=== PATIENT | female | born 2000 | race African-American/Black ===

== ENCOUNTER 2020-09-28 20:14 | Emergency (ER) | payer OTHER ==
[~2020-09-28] VITALS: Ht 165.1 cm; Wt 73.5 kg
[2020-09-28 21:15] LABS: HEMATOCRIT 38.3 % (37.0-47.0); HEMOGLOBIN 12.5 gm/dL (12.0-15.0); MCH 27.9 pg (26.0-34.0); MCHC 32.7 g/dL (28.0-37.0); MCV 85.1 fL (80.0-100.0); PLATELET COUNT 262 thou/uL (150-400); RDW 14.1 % (10.5-14.5); WBC 4.1 thou/uL (4.0-11.0)
[2020-09-28 21:21] LABS: ANION GAP 7 mmol/L (7-16); BUN 13 mg/dL (7-18); CALCIUM 9.1 mg/dL (8.5-10.1); CHLORIDE 106 mmol/L (98-107); CO2 28 mmol/L (21-32); CREATININE 0.9 mg/dL (0.6-1.0); GLUCOSE 93 mg/dL (74-106); POTASSIUM 3.9 mmol/L (3.5-5.1); SODIUM 141 mmol/L (136-145)
[2020-09-28 21:31] LABS: TROPONIN-I <0.06 ng/mL (<0.06)
[2020-09-28 22:00] LABS: ABSOLUTE NEUTROPHILS 1.4 thou/uL (1.4-8.2); ANISOCYTOSIS 1+; POLYCHROMASIA OCCASIONAL
[2020-09-28] MEDS ORDERED: MOBIC15 MG PO (22:58)
[2020-09-28 23:11] VITALS: BP 110/68
--- NOTE | 2020-09-29 07:27 | EKG ---
[facility] [place] [address] ELECTROCARDIOGRAM REPORT Name: RASHID GRIFFTIH Room #: DEP [facility]#: [id number] Admission: 09/28/20 Attend Phys: Discharge: 09/28/20 Date of : [birth year] Report #: [id number] THIS REPORT FOR: cc: NERI - Felicia family physician/PCP NERI - Felicia family physician/PCP River Watson MD [facility] ~ THIS REPORT FOR: //name// [facility] ED Test Date: 2020-09-28 Test Time: 20:50:04 Pat Name: RASHID GRIFFITH Department: Room: Gender: F [employer]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
== END 2020-09-28 23:25 | disposition home or self-care (01) ==
LOC: ER 20:14
PROVIDERS: Emergency Medicine
DX: M94.0 Chondrocostal junction syndrome [Tietze] (principal); R42 Dizziness and giddiness; R06.02 Shortness of breath